=== PATIENT | female | born 1950 | race Caucasian/White ===

== ENCOUNTER 2017-08-18 07:02 | Day surgery (SDC) | payer MEDICARE, BC ==
[~2017-08-18 07:02] MED LIST: Buffered Lidocaine 0.9% SYRIN* 5 ML/SYR SYRINGE INTRADERM ONE
[2017-08-18] MEDS ORDERED: ceFAZolin 2 GM PREMIX (*) 2 GM/50 ML BAG IVPB ONE (07:21)
[2017-08-18] MEDS ORDERED: Dexamethasone IV* 4 MG/ML 1 ML (4 MG) ONE (07:21)
[2017-08-18] MEDS ORDERED: Cocaine 4% TOPICAL* 4 ML TOP.SOLN ONE (07:52)
[2017-08-18] MEDS ORDERED: Lidocain 1% EPI 1:100,000 * 30 ML MDV ONE ×2 (07:53→08:51)
[2017-08-18] MEDS ORDERED: Bacitracin OINTMENT* 0.5% 0.5 oz TUBE ONE (07:53)
[2017-08-18] MEDS ORDERED: Bupivacaine 0.5% SDV PF* 10-30ML VIAL ONE (07:53)
[2017-08-18] MEDS ORDERED: EPINEPHrine AMP 1 MG/ML ONE (07:54)
[2017-08-18] MEDS ORDERED: Midazolam* 1 MG/ML 2 ML VIAL (2 MG) ONE (08:12)
[2017-08-18] MEDS ORDERED: fentaNYL* 50 MCG/ML 2 ML VIAL (100 MCG VIAL) ONE (08:12)
[2017-08-18] MEDS ORDERED: Lidocaine 2% PF * 5 ML VIAL ONE (08:13)
[2017-08-18] MEDS ORDERED: Succinylcholine* 20 MG/ML 10 ML VIAL ONE (08:13)
[2017-08-18] MEDS ORDERED: Propofol* 10 MG/ML 20 ML BTL IV PUSH ONE ×2 (08:13→10:01)
[2017-08-18] MEDS ORDERED: Sodium Citrate/Citric Acid* 15 ML UDC ONE (08:17)
[2017-08-18] MEDS ORDERED: Oxymetazoline 0.05% NASAL SPR* 15 ML BTL ONE (08:17)
[2017-08-18] MEDS ORDERED: fentaNYL* 50 MCG/ML 2 ML VIAL (100 MCG VIAL) IV PRN (08:20)
[2017-08-18] MEDS ORDERED: Naloxone* 0.4 MG/ML 1 ML VIAL IV PRN (08:20)
[2017-08-18] MEDS ORDERED: Ondansetron INJ* 2 MG/ML VIAL IV PRN (08:20)
[2017-08-18 10:59] VITALS: BP 154/72
--- NOTE | 2017-08-26 13:33 | OP ---
OPERATIVE REPORT: DATE OF OPERATION: 08/18/17 DATE OF : 46 SURGEON: Zeus Damon MD, DMD AV SPECIALIST: Wellington Carlos MD PRE-OP DIAGNOSES: Progressive nasal airway obstruction and nasal deformity. POST-OP DIAGNOSES: Progressive nasal airway obstruction and nasal deformity. OPERATIVE PROCEDURE: Septorhinoplasty with conservative inferior turbinate reduction. INDICATIONS: The patient is a 67-year-old female with longstanding interest in having her functional and contour deformities addressed, as she has had progressive increase in nasal airway obstruction. After discussing the full range of treatment options, alternatives, advantages, and disadvantages of each, potential risks and complications in detail, she indicates she understands and wished to proce ed. DESCRIPTION OF PROCEDURE: The patient was brought to the operating room suite, placed under general anesthesia with oral endotracheal intubation, positioned properly with eyes gently closed and taped, and prepped and draped in the standard fashion for a facial reconstructive procedure. Perley prot ocol time-out procedure was performed prior to administration of local anesthesia. 4% cocaine moiste walter Codman patties were placed as bilateral nasal packs for local anesthesia and hemostasis and 1% li docaine with 1:200,000 epinephrine was used for local anesthesia infiltrating the septum bilaterally in the areas of marginal incisions over the nasal dorsum in the standard fashion using a total of kj roximately 10 cc. After allowing for local anesthesia and hemostasis, the patient was prepped and mary kate ped in the standard fashion for a nasal procedure and attention was directed to the nose after anothe r universal protocol time-out procedure was completed. Marginal incisions were made with a #15 blade, connecting to an inverted V columellar incision and the nasal tip was skeletonized using dorsal angl e scissors. The skin and soft tissue envelope was elevated off the nasal dorsum. The septum was appr oached from above, first on the left side, then on the right side, and in the submucoperichondrial pl ane. The twisted and deviated septum was identified. The small [place] and [place] swivel knife were used to harvest central portion of the quadrangular cartilage that would later be used for grafting. Bee forceps were used to remove other portions of the septum that were away from the midline and a portion of the perpendicular plate of the ethmoid. Nasal airway configuration was felt to be g reatly improved. The caudal septum was trimmed slightly to allow for superior tip rotation and that was performed with a #15 blade. Bilateral cephalic margin reductions were completed. A columellar s trip was formed from the harvested cartilage and secured to the medial crura of the lower lateral car tilages. All of the maneuvers accomplished the planned goal. Septum was closed in a running closed a nd a horizontal mattress fashion with 4-0 chromic suture. Marginal incisions were closed with interr upted 5-0 chromic suture and the columellar incision was closed in interrupted fashion with 6-0 nylon . 1% lidocaine with 1:200,000 epinephrine was infiltrated in the soft tissues of the inferior turbin ates and after allowing for local anesthesia and hemostasis, bipolar cautery was used to address the redundant mucosa and the inferior turbinates were outfractured. Mastisol, Steri-Strips, and Aquaplas t dressing were placed in standard fashion and rolled Telfa pads were trimmed and rolled Telfa pads w ere placed with bacitracin as bilateral light intranasal packs. The patient was allowed to awaken fr om anesthesia, was extubated and transported to postanesthesia care unit, awake, breathing spontaneou sly, and stable. All sponge and needle counts were correct at the end of the procedure. Estimated b lood loss was minimal and certainly less than 20 cc. [id number]/[facility] #: [id number]
== END 2017-08-18 11:12 | disposition home or self-care (01) ==
LOC: OREAST 07:02
PROVIDERS: ATTEND Oral & Maxillofacial Surgery
DX: J34.89 Other specified disorders of nose and nasal sinuses (principal); M95.0 Acquired deformity of nose; Z87.891 Personal history of nicotine dependence; M19.90 Unspecified osteoarthritis, unspecified site; R01.1 Cardiac murmur, unspecified
CPT/HCPCS: A9270-GY; J0171; J0330; J0690; J1100; J2250; J2704; J3010

== ENCOUNTER 2018-04-14 04:59 | Emergency (ER) | payer MEDICARE, BC ==
--- NOTE | 2018-04-14 06:10 | ED ---
Throat Pain/Nasal Congestion - HPI Summary HPI Summary: Patient presents with 2 day history of sore throat and dry cough. Cough is intermittent and triggered by nothing in particular. She reports a low-grade fever of 99F. Denies headache, runny nose, sneezing, earache, chest pain, shortness of breath, wheezing, chest tightness, abdominal pain, nausea, vomiting diarrhea, rash. She has not tried anything for her sore throat and reports she is still eating and drinking well without difficulty. She does have a history of GERD but denies that this is contributing to her sore throat. Takes a PPI OTC as needed and has not needed this recently. She is here as she is concerned that she could have strep throat which she has a history of as well as mono as her granddaughter was recently diagnosed with this. She is traveling soon and "just wanted to get checked out". No other significant medical issues. - History of Current Complaint Chief Complaint: EDThroatPain Time Seen by Provider: 04/14/18 05:51 Hx Obtained From: Patient - Allergies/Home Medications Allergies/Adverse Reactions: Allergies Allergy/AdvReac Type Severity Reaction Status Date / Time No Known Allergies Allergy Verified 08/18/17 07:27 PMH/Surg Hx/FS Hx/Imm Hx Previously Healthy: Yes Endocrine/Hematology History: Reports: Hx Anemia - A CHILD Denies: Hx Thyroid Disease, Autoimmune Disease Cardiovascular History: Denies: Hx Angina, Hx Atrial Fibrillation, Hx Congestive Heart Failure, Hx Hypertension, Hx Pacemaker/ICD, Hx Valvular Heart Disease Respiratory History: Denies: Hx Asthma, Hx Chronic Obstructive Pulmonary Disease (COPD) GI History: Reports: Hx Gastroesophageal Reflux Disease - OCCASIONALLY, TAKES MEDICATION NEEDED Musculoskeletal History: Reports: Hx Arthritis - HANDS Sensory History: Reports: Hx Cataracts - EARLY STAGES, Hx Contacts or Glasses - READING GLASSES Denies: Hx Hearing Aid Opthamlomology History: Reports: Hx Cataracts - EARLY STAGES, Hx Contacts or Glasses - READING GLASSES - Surgical History Surgery Procedure, Year, and Place: cyst removed from right breast 1993 Hx Anesthesia Reactions: No Infectious Disease History: No Infectious Disease History: Denies: Traveled Outside the [place] in Last 30 Days - Social History Occupation: Retired Lives: With Family - Alcohol Use: Daily Alcohol Amount: 1 GLASS PER DAY OR EVERY OTHER DAY Hx Substance Use: No Substance Use Type: Reports: None Hx Tobacco Use: Yes - quit 40 yrs ago Smoking Status (MU): Former Smoker Amount Used/How Often: 1-2 CIGARETTES PER DAY X 5 YEARS Have You Smoked in the Last Year: No Review of Systems Positive: Fever - low grade. Negative: Chills, Fatigue Eyes: Negative Positive: Sore Throat. Negative: Epistaxis, Dental Pain, Ear Ache, Nasal Discharge Cardiovascular: Negative Positive: Cough - dry, intermittent. Negative: Shortness Of Breath Gastrointestinal: Negative Positive: no symptoms reported Musculoskeletal: Negative Skin: Negative Neurological: Negative Psychological: Normal All Other Systems Reviewed And Are Negative: Yes Physical Exam Triage Information Reviewed: Yes Vital Signs On Initial Exam: Initial Vitals Temp Pulse Resp BP Pulse Ox 99.2 F 66 15 170/82 99 04/14/18 05:01 04/14/18 05:01 04/14/18 05:01 04/14/18 05:01 04/14/18 05:01 Vital Signs Reviewed: Yes Appearance: Positive: Well-Appearing, No Pain Distress, Well-Nourished Skin: Positive: Warm, Skin Color Reflects Adequate Perfusion, Dry - no rash Head/Face: Positive: Normal Head/Face Inspection Eyes: Positive: Normal, EOMI, KARAN, Conjunctiva Clear. Negative: Conjunctiva Inflammed, Discharge ENT: Positive: Normal ENT inspection, Hearing grossly normal, Pharynx normal - mucosa moist, pink, TMs normal, Uvula midline. Negative: Nasal congestion, Nasal drainage, Tonsillar swelling, Tonsillar exudate, Trismus, Muffled voice, Hoarse voice, Sinus tenderness Dental: Negative: Abscess @ Neck: Positive: Supple, Nontender, No Lymphadenopathy Respiratory/Lung Sounds: Positive: Clear to Auscultation, Breath Sounds Present. Negative: Rales, Rhonchi, Wheezes Cardiovascular: Positive: Normal, RRR, S1, S2. Negative: Murmur, Rub, Leg Edema Left, Leg Edema Right Abdomen Description: Positive: Nontender, No Organomegaly, Soft Bowel Sounds: Positive: Present Musculoskeletal: Positive: Normal, Strength/ROM Intact Neurological: Positive: Normal, Sensory/Motor Intact, Alert, Oriented to Person Place, Time, CN Intact II-III Psychiatric: Positive: Normal Diagnostics - Vital Signs Vital Signs Temp Pulse Resp BP Pulse Ox 04/14/18 05:01 99.2 F 66 15 170/82 99 - Laboratory Lab Statement: Any lab studies that have been ordered have been reviewed, and results considered in the medical decision making process. EENT Course/Dx - Course Course Of Treatment: Pt declines pain medication for sore throat. Rapid Strep: neg. [place]:neg. Supportive care instructions provided. Discussed danger s/sx of when to return to ED. Pt voices understanding. - Diagnoses Provider Diagnoses: Viral URI with cough Discharge - Sign-Out/Discharge Documenting (check all that apply): Patient Departure - Discharge Plan Condition: Stable Disposition: HOME Patient Education Materials: Upper Respiratory Infection (ED) Referrals: Gabriella Nash MD [Primary Care Provider] - Additional Instructions: Follow-up with PCP if symptoms worsen. Otherwise, try the following for relief of symptoms: Nasal wash (netti pot or saline spray) & salt water throat gargles 2 x day Drink you body weight in ounces of water every day Sleep 8+ hours per night Avoid Dairy and sugar Hot herbal/decaf tea with lemon & honey Chicken broth (preferably organic, free range chicken) Humidifier in house, but especially near bed at night Keep home temperature at 68F or less to reduce dryness Use cough drops/throat lozenges Try a facial steam with or without eucalyptus essential oil or Yossi's Vapor rub for congestion Avoid smoke, candles, perfumes, colognes, scented soaps/detergents , air fresheners and cleaning chemicals as these can cause airway irritation and trigger coughing Start Vitamin C 1000mg every day during illness *If you develop difficulty breathing or swallowing, return to the ED - Billing Disposition and Condition Condition: STABLE Disposition: Home
[2018-04-14 07:14] VITALS: BP 158/82
== END 2018-04-14 07:13 | disposition home or self-care (01) ==
LOC: ED 04:59
DX: J06.9 Acute upper respiratory infection, unspecified (principal); R05 Cough; Z87.891 Personal history of nicotine dependence
CPT/HCPCS: 36415; 86308; 87651; 99281